=== PATIENT | female | born 1940 | race African-American/Black ===

== ENCOUNTER → 2017-09-13 | Outpatient (CLI) | payer OTHER ==
[~2017-09-13] VITALS: Ht 154.9 cm; Wt 69.9 kg
[~2017-09-13] MED LIST: ALTACE10 MG PO; AMLODIPINE BESY10 MG PO; LIPITOR 20 MG T20 M1 PO
[2017-09-13 10:22] VITALS: BP 139/71
[2017-09-13 11:50] LABS: HEMATOCRIT 41.1 % (37.0-47.0); HEMOGLOBIN 13.9 gm/dL (12.0-15.0); MCHC 33.8 g/dL (28.0-37.0); MCV 91.7 fL (80.0-100.0); RBC 4.48 mil/uL (4.20-5.00); WBC 4.5 thou/uL (4.0-11.0)
[2017-09-13 12:03] LABS: ALBUMIN 3.4 g/dL (3.4-5.0); ANION GAP 9 mmol/L (7-16); BUN 16 mg/dL (7-18); CALCIUM 9.3 mg/dL (8.5-10.1); CHLORIDE 107 mmol/L (98-107); CHOLESTEROL 165 mg/dL (<200); CO2 27 mmol/L (21-32); CREATININE 0.6 mg/dL (0.6-1.0); GLUCOSE 97 mg/dL (74-106); HDL CHOLESTEROL 80 mg/dL (>40); LDL CHOLESTEROL 75 mg/dL (<100); MAGNESIUM 1.9 mg/dL (1.8-2.4); POTASSIUM 3.8 mmol/L (3.5-5.1); SGOT 20 U/L (15-37); SGPT 34 U/L (30-65); SODIUM 143 mmol/L (136-145); TC:HDL 2.1 Ratio (Not establshd); TOTAL BILIRUBIN 0.7 mg/dL (<0.1-1.0); TOTAL PROTEIN 7.3 g/dL (6.4-8.2); TRIGLYCERIDE 51 mg/dL (<150); VLDL 10 mg/dL (<40)
[2017-09-13 12:29] LABS: TSH 0.482 uIU/mL (0.358-3.740)
[2017-09-14 04:12] LABS: GLYCOHEMOGLOBIN (HGB A1C) 6.2 % (4.8-5.6)
== END ==
LOC: SEN 09:09
PROVIDERS: Registered Nurse
DX: M79.1 Myalgia (principal); R53.1 Weakness